=== PATIENT | male | born 1940 | race Caucasian/White ===

== ENCOUNTER 2018-12-28 02:47 | Emergency (ER) | payer OTHER, MEDICARE ==
[2018-12-28 03:10] LABS: PLATELET COUNT 196 10^3/uL (150-400)
--- NOTE | 2018-12-28 03:25 | EDPHY ---
H & P Stated Complaint: racing heart and SOB Time Seen by Provider: 12/28/18 02:51 HPI/ROS: HPI The patient presents with multiple symptoms which have been present for the last 8 days though getting progressively worse. He is brought in by ambulance from his home. He is worried that he may be in acute renal failure, he reports he has a history of this 2 years ago at another hospital requiring a 5 day admission. As he has noticed that his urine smells different to him and this symptom was present when he was diagnosed with renal failure. He also reports intermittent dizziness which he describes as feeling off balance. He feels this mostly when he stands. He has not had any falls. He says he experiences tingling in fingers and toes bilaterally which also comes and goes. Says he was lying in bed tonight and because of all the symptoms he called 911. His symptoms began about 8 days ago with this dizziness as well as sweating and sensation of his heart pounding. He thought he might be coming down with the flu. He also reports decreased appetite over the last 8 days losing approximately 8 lb. He is able to drink fluids without difficulty. He has not had any fever, cough, abdominal pain, vomiting. He has not had any chest pain or shortness of breath.. REVIEW OF SYSTEMS 10 systems were reviewed and negative with the exception of the elements mentioned in the history of present illness. PMHx: History of depression, acute renal failure, atrial fibrillation Soc Hx: Lives at home PHYSICAL General Appearance: Alert, no distress Eyes: Pupils equal and round no pallor or injection ENT, Mouth: Mucous membranes moist Respiratory: There are no retractions, lungs are clear to auscultation Cardiovascular: Regular rate and rhythm Gastrointestinal: Abdomen is soft and non-tender, no masses, bowel sounds normal Neurological: A&O, moves all extremities Skin: Warm and dry, no rashes Musculoskeletal: Neck is supple non tender Extremities: symmetrical, full range of motion Psychiatric: Patient is oriented X 3, there is no agitation Source: Patient, EMS Exam Limitations: No limitations - Personal History Current Tetanus/Diphtheria Vaccine: No Current Tetanus Diphtheria and Acellular Pertussis (TDAP): No - Medical/Surgical History Hx Asthma: No Hx Chronic Respiratory Disease: No Hx Diabetes: No Hx Cardiac Disease: Yes Hx Renal Disease: Yes Hx Cirrhosis: No Hx Alcoholism: No Hx HIV/AIDS: No Hx Splenectomy or Spleen Trauma: No Other PMH: TIA, acute renal failure, Afib - Social History Smoking Status: Former smoker Constitutional: Initial Vital Signs Temperature (C) 36.7 C 12/28/18 02:50 Heart Rate 60 12/28/18 02:50 Respiratory Rate 16 12/28/18 02:50 Blood Pressure 169/73 H 12/28/18 02:50 O2 Sat (%) 92 12/28/18 02:50 O2 Delivery Mode Room Air Allergies/Adverse Reactions: Sulfa (Sulfonamide Antibiotics) Allergy (Verified 12/28/18 02:58) Home Medications: Medication Instructions Recorded ALPRAZolam 12/28/18 Citalopram Hydrobromide 12/28/18 Gemfibrozil 12/28/18 Lovastatin 12/28/18 Metoprolol Succinate 12/28/18 Verapamil 12/28/18 Medical Decision Making - Diagnostics EKG Interpretation: EKG: Complete interpretation has been separately recorded in the [facility] archive. Summary impression: Normal sinus rhythm Imaging Results: Chest x-ray single view shows no cardiomegaly, no infiltrates, interpreted by me , radiology interpretation pending. Imaging: I viewed and interpreted images myself Differential Diagnosis: This is a 78-year-old man brought in by ambulance from home with symptoms of dizziness causing him to feel off balance, paresthesias, foul-smelling urine for the last 8 days. He does have some sort of history of renal failure requiring admission, he reports a change in the appearance of his urine as well. Here, patient is given a L of IV fluids. 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 His labs were performed and did demonstrate some degree of what appears to be hemoconcentration. Otherwise his chest x-ray, renal function, UA were all normal. I discussed this with the patient. He is happy that his test results are normal. He was able to tolerate a fluid challenge and will be discharged home. Because there is some diagnostic uncertainty in his case, I have advised that he follow up with his primary care physician in a few days. Differential diagnosis includes electrolyte abnormality, anemia, atrial fibrillation, renal failure, urinary tract infection. - Data Points Laboratory Results: Laboratory Results 12/28/18 03:00 12/28/18 03:00 12/28/18 12/28/1812/28/19 05:29 03:20 03:00 WBC RBC Hgb Hct MCV MCH MCHC RDW Plt Count MPV Neut % (Auto) Lymph % (Auto) [place] % (Auto) Eos % (Auto) Baso % (Auto) Nucleat RBC Rel Count Absolute Neuts (auto) Absolute Lymphs (auto) Absolute Monos (auto) Absolute Eos (auto) Absolute Basos (auto) Absolute Nucleated RBC Immature Gran % Immature Gran # Sodium 141 mEq/L mEq/L (135-145) Potassium 4.2 mEq/L mEq/L (3.5-5.2) Chloride 107 mEq/L mEq/L (97-110) Carbon Dioxide 24 mEq/l mEq/l (22-31) Anion Gap 10 mEq/L mEq/L (6-14) BUN 23 mg/dL mg/dL (7-23) Creatinine 0.7 mg/dL mg/dL (0.7-1.3) Estimated GFR > 60 Glucose 101 mg/dL H mg/dL (70-100) Calcium 9.8 mg/dL mg/dL (8.5-10.4) Total Bilirubin 1.3 mg/dL mg/dL (0.1-1.4) AST 32 IU/L IU/L (17-59) ALT 37 IU/L IU/L (21-72) Alkaline Phosphatase 63 IU/L IU/L (38-126) Total Protein 7.1 g/dL g/dL (6.3-8.2) Albumin 4.2 g/dL g/dL (3.5-5.0) TSH 1.810 uIU/mL uIU/mL (0.465-4.680) Urine Color YELLOW Urine Appearance CLEAR Urine pH 5.0 (5.0-7.5) Ur Specific [place] 1.020 (1.002-1.030) Urine Protein NEGATIVE (NEGATIVE) Urine Ketones TRACE H (NEGATIVE) Urine Blood NEGATIVE (NEGATIVE) Urine Nitrate NEGATIVE (NEGATIVE) Urine Bilirubin NEGATIVE (NEGATIVE) Urine Urobilinogen NEGATIVE EU EU (0.2-1.0) Ur Leukocyte Esterase NEGATIVE (NEGATIVE) Urine Glucose NEGATIVE (NEGATIVE) 12/28/18 03:00 WBC 13.45 10^3/uL H 10^3/uL (3.80-9.50) RBC 5.95 10^6/uL 10^6/uL (4.40-6.38) Hgb 18.3 g/dL H g/dL (13.7-17.5) Hct 52.2 % H % (40.0-51.0) MCV 87.7 fL fL (81.5-99.8) MCH 30.8 pg pg (27.9-34.1) MCHC 35.1 g/dL g/dL (32.4-36.7) RDW 13.1 % % (11.5-15.2) Plt Count 196 10^3/uL 10^3/uL (150-400) MPV 11.1 fL fL (8.7-11.7) Neut % (Auto) 68.9 % % (39.3-74.2) Lymph % (Auto) 21.3 % % (15.0-45.0) [place] % (Auto) 8.2 % % (4.5-13.0) Eos % (Auto) 0.4 % L % (0.6-7.6) Baso % (Auto) 0.8 % % (0.3-1.7) Nucleat RBC Rel Count 0.0 % % (0.0-0.2) Absolute Neuts (auto) 9.25 10^3/uL H 10^3/uL (1.70-6.50) Absolute Lymphs (auto) 2.87 10^3/uL 10^3/uL (1.00-3.00) Absolute Monos (auto) 1.10 10^3/uL H 10^3/uL (0.30-0.80) Absolute Eos (auto) 0.06 10^3/uL 10^3/uL (0.03-0.40) Absolute Basos (auto) 0.11 10^3/uL H 10^3/uL (0.02-0.10) Absolute Nucleated RBC 0.00 10^3/uL 10^3/uL (0-0.01) Immature Gran % 0.4 % % (0.0-1.1) Immature Gran # 0.06 10^3/uL 10^3/uL (0.00-0.10) Sodium Potassium Chloride Carbon Dioxide Anion Gap BUN Creatinine Estimated GFR Glucose Calcium Total Bilirubin AST ALT Alkaline Phosphatase Total Protein Albumin TSH Urine Color Urine Appearance Urine pH Ur Specific [place] Urine Protein Urine Ketones Urine Blood Urine Nitrate Urine Bilirubin Urine Urobilinogen Ur Leukocyte Esterase Urine Glucose Medications Given: Discontinued Medications Sodium Chloride (Ns) 1,000 mls @ 0 mls/hr IV EDNOW ONE; Wide Open PRN Reason: Protocol Stop: 12/28/18 03:55 Last Admin: 12/28/18 04:08 Dose: 1,000 mls Departure - Departure Disposition: Home, Routine, Self-Care Clinical Impression: Dizziness, Palpitations Condition: Good Instructions: Dehydration (ED) Additional Instructions: Please make sure to drink plenty of fluids over the next few days. Your blood work here showed that you may be dehydrated. I recommend you follow up with your primary care doctor in the next 1-2 days. Referrals: Deirdre Saul MD [Primary Care Provider] - As per Instructions
[2018-12-28] MEDS ORDERED: NS 1,000 ML IV ONE (03:54)
[2018-12-28 06:23] VITALS: BP 120/65
--- NOTE | 2018-12-28 06:55 | CPEKG ---
Test Reason : OPEN Blood Pressure : / mmHG Vent. Rate : 059 BPM Atrial Rate : 059 BPM P-R Int : 186 ms QRS Dur : 093 ms QT Int : 441 ms P-R-T Axes : 037 046 074 degrees QTc Int : 437 ms Sinus rhythm Anterior infarct, old Confirmed by Meliza Urbina ([id number]) on 12/28/2018 6:54:38 AM Referred By: Meliza Urbina Confirmed By:Meliza Urbina
== END 2018-12-28 06:52 | disposition home or self-care (01) ==
DX: R42 Dizziness and giddiness (principal); R00.2 Palpitations; N19 Unspecified kidney failure; E86.9 Volume depletion, unspecified